=== PATIENT | male | born 1990 | race African-American/Black ===

== ENCOUNTER 2018-05-21 16:51 | Emergency (ER) | payer OTHER ==
--- NOTE | 2018-05-21 17:17 | PDOC ---
Rapid Medical Evaluation Time Seen by Provider: 05/21/18 17:15 Medical Evaluation: Allergies Allergy/AdvReac Type Severity Reaction Status Date / Time No Known Allergies Allergy Verified 02/25/13 21:35 I have performed a brief in-person evaluation of this patient. The patient presents with a chief complaint of: right hand pain; it was jammed at work yesterday Pertinent physical exam findings: pain with palpation of right pinky finger. I have ordered the following: xray right fingers The patient will proceed to the ED for further evaluation. Discharge Disposition - Diagnosis Finger injury - Referrals - Patient Instructions - Post Discharge Activity
[2018-05-21 17:18] VITALS: BP 112/66; PULSE 75; TEMP 98; BMI 26.0
--- NOTE | 2018-05-21 18:35 | PDOC ---
History of Present Illness - General Chief Complaint: Injury Stated Complaint: HAND INJURY Time Seen by Provider: 05/21/18 17:15 - History of Present Illness Initial Comments: 28-year-old healthy male free of comorbidities presents for evaluation of right fifth finger pain after a palate guarding chairs fell on his hand and his hand was stuck in between a mainor and the chairs he points to the proximal phalanx of the fifth finger on the right hand as the area of his discomfort. 05/21/18 18:31 Past History - Past Medical History Allergies/Adverse Reactions: Allergies Allergy/AdvReac Type Severity Reaction Status Date / Time No Known Allergies Allergy Verified 05/21/18 17:15 Home Medications: Ambulatory Orders No Home Medications 0 dose .ROUTE UTDICT 02/25/13 COPD: No - Suicide/Smoking/Psychosocial Hx Smoking Status: No Smoking History: Never smoked Number of Cigarettes Smoked Daily: 0 Information on smoking cessation initiated: No Hx Alcohol Use: No Drug/Substance Use Hx: No Substance Use Type: None Review of Systems - Review of Systems Musculoskeletal: Yes: See HPI All Other Systems: Reviewed and Negative *Physical Exam - Vital Signs Last Vital Signs Temp Pulse Resp BP Pulse Ox 98.0 F 75 18 112/66 100 05/21/18 17:15 05/21/18 17:15 05/21/18 17:15 05/21/18 17:15 05/21/18 17:15 - Physical Exam Comments: There is mild swelling around the proximal phalanx FDS and FDP work independently. There is no malrotation. There is tenderness about the shaft of the proximal phalanx. There are no gross sensorimotor deficits. 05/21/18 18:32 Medical Decision Making - Medical Decision Making I don't appreciate a discrete fracture on radiograph however there is a radiolucent line open obliquely oriented in the shaft of the middle phalanx on the is may represent a nutrient vessel 05/21/18 18:32 *DC/Admit/Observation/Transfer Diagnosis at time of Disposition: Finger injury, Fracture, finger - Discharge Dispostion Disposition: HOME Condition at time of disposition: Stable Decision to Admit order: No - Referrals Referrals: Juan Carlos Rosa MD [Staff Physician] - - Patient Instructions Printed Discharge Instructions: Finger Fracture, DI for Finger Fracture, DI for Crush Injury Additional Instructions: Return to the emergency room should her symptoms worsen or go unresolved. In the meantime keep your fingers drake taped to air demonstrated in the emergency room today. Follow-up with hand surgery within the next 2-3 days for further evaluation and treatment options. I am not sure if there is a discrete fracture line on x-ray the line I suspect may represent a blood vessel in your bone as opposed to a discrete fracture line. - Post Discharge Activity
== END 2018-05-21 18:54 | disposition home or self-care (01) ==
LOC: JERFT 16:51
DX: S67.196A Crushing injury of right little finger, initial encounter (principal); S67.21XA Crushing injury of right hand, initial encounter; W23.0XXA Caught, crushed, jammed, or pinched between moving objects, initial encounter; Y93.H3 Activity, building and construction; Y92.69 Other specified industrial and construction area as the place of occurrence of the external cause; Y99.0 Civilian activity done for income or pay
CPT/HCPCS: 73140-TC-RT-FY; 99281-25

== ENCOUNTER 2018-05-29 12:27 | Emergency (ER) | payer OTHER ==
[2018-05-29 12:35] VITALS: BP 120/51; PULSE 79; TEMP 98.2; BMI 26.0
--- NOTE | 2018-05-29 13:02 | PDOC ---
History of Present Illness - General Chief Complaint: Injury Stated Complaint: REVISIT, HAND INJURY Time Seen by Provider: 05/29/18 12:41 History Source: Patient Exam Limitations: No Limitations - History of Present Illness Initial Comments: 05/29/18 13:05 [age] male presents the ED with complaints of right fifth digit pain for the past week. Patient states approximately one week ago while at work he had [employer] chairs landing on his hand causing him discomfort. Patient was seen here had a negative x-ray and was told to take Motrin and rest. Patient states has been on light duty since and denies any worsening symptoms including paresthesia , swelling or skin discoloration. Patient states pain is aggravated with movement and minimal at rest. Timing/Duration: intermittent Severity: mild Associated Symptoms: reports: denies symptoms Past History - Past Medical History Allergies/Adverse Reactions: Allergies Allergy/AdvReac Type Severity Reaction Status Date / Time No Known Allergies Allergy Verified 05/29/18 12:35 Home Medications: Ambulatory Orders No Home Medications 0 dose .ROUTE UTDICT 02/25/13 COPD: No - Suicide/Smoking/Psychosocial Hx Smoking Status: No Smoking History: Never smoked Have you smoked in the past 12 months: No Number of Cigarettes Smoked Daily: 0 Information on smoking cessation initiated: No Hx Alcohol Use: No Drug/Substance Use Hx: No Substance Use Type: None Patient Lives Alone: No Lives with/in: spouse/SO Review of Systems - Review of Systems Able to Perform ROS?: No Constitutional: No: Symptoms Reported Musculoskeletal: Yes: Joint Pain Integumentary: No: Symptoms Reported Neurological: No: Symptoms reported *Physical Exam - Vital Signs Last Vital Signs Temp Pulse Resp BP Pulse Ox 98.2 F 79 16 120/51 100 05/29/18 12:32 05/29/18 12:32 05/29/18 12:32 05/29/18 12:32 05/29/18 12:32 - Physical Exam General Appearance: Yes: Nourished, Appropriately Dressed. No: Apparent Distress Extremity: positive: Normal Capillary Refill, Normal Inspection, Normal Range of Motion, Tender (at the web and soft tissue of the fourth and fifth digit base on the right hand) Integumentary: positive: Normal Color, Warm, Moist Neurologic: positive: Motor Strength 5/5 (full ROM of fourth and fifth right digits) Medical Decision Making - Medical Decision Making 05/29/18 13:10 Patient continues with continual discomfort to his right hand after having an injury 1 week ago. X-ray reviewed which was negative and read by radiologist. Patient states pain is decreased with Motrin but worsened with movement. Patient examined and has noted soft tissue tenderness. Patient with likely contusion. Pt placed in metal finger splint which I I explained to be worn during the day removed at night. *DC/Admit/Observation/Transfer Diagnosis at time of Disposition: Contusion of finger Qualifiers: Encounter type: initial encounter Finger: little finger Laterality: right - Discharge Dispostion Disposition: HOME Condition at time of disposition: Good - Referrals Referrals: Donta Prasad MD [Staff Physician] - - Patient Instructions Printed Discharge Instructions: DI for Contusion Additional Instructions: May use metal finger splint during the day but remove at night to allow for mobility. May take Motrin 4-600 mg every 8 hours to help inflammation. Avoid movements that triggered discomfort at his normal improvement over the next week please follow up with referred orthopedist. - Post Discharge Activity
== END 2018-05-29 13:07 | disposition home or self-care (01) ==
LOC: JERFT 12:27
PROC: 2W3JX1Z Immobilization of Right Finger using Splint (ICD-10-PCS; principal; 2018-05-29)
DX: S60.221A Contusion of right hand, initial encounter (principal); W22.8XXA Striking against or struck by other objects, initial encounter; Y93.89 Activity, other specified; Y92.59 Other trade areas as the place of occurrence of the external cause; Y99.0 Civilian activity done for income or pay
CPT/HCPCS: 99281-25